=== PATIENT | male | born 1955 | race Caucasian/White ===

== ENCOUNTER → 2025-01-10 15:37 | Outpatient (REF) | payer MEDICARE, OTHER, SELFPAY | LOC: RAD 15:37 | PROVIDERS: ATTENDING PHYSICIAN Internal Medicine | DX: R55 Syncope and collapse (principal); R06.00 Dyspnea, unspecified | CPT/HCPCS: 71275; Q9967 ==

== ENCOUNTER → 2025-01-17 12:49 | Outpatient (REF) | payer MEDICARE, OTHER, SELFPAY | LOC: RCS 12:49 | PROVIDERS: ATTENDING PHYSICIAN Internal Medicine | DX: R55 Syncope and collapse (principal); R06.09 Other forms of dyspnea | CPT/HCPCS: 93017; 93350 ==